=== PATIENT | male | born 1985 | race African-American/Black ===

== ENCOUNTER 2021-05-28 12:14 | Inpatient (IN) | payer OTHER ==
[~2021-05-28] VITALS: Ht 188 cm; Wt 98.0 kg
[2021-05-28] MEDS ORDERED: SODIUM CHLORIDE 0.9% 1000ML BAG (SEPSIS BOLUS) IV ONE (13:45)
[2021-05-28] MEDS ORDERED: PIPERACILLIN/TAZ 3.375G PREMIX 50 ML IV ONE (14:30)
[2021-05-28] MEDS ORDERED: VANCOMYCIN 1 G PREMIX 200 ML IV ONE (14:30)
[2021-05-28] MEDS ORDERED: CLINDAMYCIN 600 MG in DEXTROSE 5% WATER 50 ML IV ONE (14:30)
[2021-05-28] MEDS ORDERED: CLINDAMYCIN 600MG PREMIX 50 ML IV NR (14:45)
[2021-05-28 15:11] LABS: BASOPHILS % 0.3 % (0.0-2.0); EOSINOPHILS % 1.1 % (0.0-5.0); HEMATOCRIT. 42.6 % (42.0-52.0); HEMOGLOBIN. 14.9 g/dL (14.0-18.0); LYMPHOCYTES % 12.3 % (20.0-50.0); MEAN CORPUSCULAR HEMOGLOBIN 33.5 pg (28.0-32.0); MEAN CORPUSCULAR VOLUME 95.5 fL (80.0-94.0); MEAN PLATELET VOLUME 7.7 fl (7.4-10.4); MONOCYTES % 10.8 % (2.0-8.0); NEUTROPHILS % 75.5 % (40.0-76.0); PLATELET 266 x1000/uL (130-400); RED BLOOD CELL COUNT 4.46 mill/uL (4.7-6.1); RED CELL DISTRIBUTION WIDTH 13.4 % (11.6-14.6)
[2021-05-28] MEDS ORDERED: KETOROLAC 15MG/ML VIAL IV ONE (15:15)
[2021-05-28 15:23] LABS: CHLORIDE 109 mEq/L (98-107)
[2021-05-28 15:54] LABS: CLARITY URINE CLEAR (CLEAR); COLOR URINE YELLOW (YELLOW); KETONES URINE 1+ (NEGATIVE); LEUKOCYTE ESTERASE URINE NEGATIVE (NEGATIVE); NITRITE URINE NEGATIVE (NEGATIVE); OCCULT BLOOD URINE NEGATIVE (NEGATIVE); PH URINE 6.5 (4.5-8.0); PROTEIN URINE TRACE (NEGATIVE); SPECIFIC GRAVITY URINE 1.026 (1.005-1.030); UROBILINOGEN URINE 0.2 E.U./dL (0.2-1.0)
[2021-05-28] MEDS ORDERED: KCL 10MEQ/50ML PREMIX 50 ML IV ONE (16:15)
[2021-05-28 20:30] VITALS: BP 131/93
[2021-05-28] MEDS ORDERED: DIPHENHYDRAMINE 50MG/ML VIAL IV ONE (20:30)
[2021-05-28] MEDS ORDERED: IOHEXOL-300 100 ML BOTTLE ONE (20:39)
[2021-05-28 21:27] VITALS: BP 131/93
[2021-05-28] MEDS ORDERED: ACETAMINOPHEN 325MG TABLET PO PRN (22:00)
[2021-05-28] MEDS ORDERED: ONDANSETRON HCL 4MG/2ML INJ IV PRN (22:00)
[2021-05-28] MEDS: SODIUM CHLORIDE 0.9% 1,000 ML IV SCH (22:15)
[2021-05-28] MEDS ORDERED: VANCOMYCIN 1 G PREMIX 200 ML IV SCH (22:15)
[2021-05-28] MEDS: KETOROLAC 30MG/ML VIAL IV PRN (22:20)
[2021-05-29] MEDS: PIPERACILLIN/TAZOBACTAM 3.375 G in DEXTROSE 5% WATER 50 ML IV SCH ×5 (00:27→23:10)
[2021-05-29] MEDS: VANCOMYCIN 1250MG in DEXTROSE 5% WATER 250ML IV SCH ×3 (00:28→23:59)
[2021-05-29 02:59] VITALS: BP 121/83
[2021-05-29 05:43] VITALS: BP 120/77
[2021-05-29] MEDS: KETOROLAC 30MG/ML VIAL IV PRN ×3 (06:04→23:58)
[2021-05-29 07:58] LABS: BASOPHILS % 0.3 % (0.0-2.0); EOSINOPHILS % 1.8 % (0.0-5.0); HEMATOCRIT. 40.9 % (42.0-52.0); HEMOGLOBIN. 13.9 g/dL (14.0-18.0); LYMPHOCYTES % 14.4 % (20.0-50.0); MEAN CORPUSCULAR HEMOGLOBIN 32.9 pg (28.0-32.0); MEAN CORPUSCULAR VOLUME 96.9 fL (80.0-94.0); MEAN PLATELET VOLUME 7.8 fl (7.4-10.4); MONOCYTES % 10.5 % (2.0-8.0); PLATELET 241 x1000/uL (130-400); RED BLOOD CELL COUNT 4.22 mill/uL (4.7-6.1); RED CELL DISTRIBUTION WIDTH 13.5 % (11.6-14.6)
[2021-05-29 08:00] VITALS: BP 132/82
[2021-05-29 08:01] LABS: CHLORIDE 114 mEq/L (98-107)
[2021-05-29 08:05] LABS: PHOSPHORUS 2.5 mg/dL (2.5-4.9)
[2021-05-29] MEDS: SODIUM CHLORIDE 0.9% 1,000 ML IV SCH ×2 (08:52→17:21)
[2021-05-29 12:00] VITALS: BP 136/93
[2021-05-29 16:00] VITALS: BP 131/84
[2021-05-29 20:00] VITALS: BP 125/80
[2021-05-30] VITALS: BP 124/65
[2021-05-30 04:00] VITALS: BP 122/70
[2021-05-30] MEDS: SODIUM CHLORIDE 0.9% 1,000 ML IV SCH ×2 (04:53→14:15)
[2021-05-30] MEDS: PIPERACILLIN/TAZOBACTAM 3.375 G in DEXTROSE 5% WATER 50 ML IV SCH ×2 (05:06→11:18)
[2021-05-30] MEDS: KETOROLAC 30MG/ML VIAL IV PRN (05:50)
[2021-05-30 06:50] LABS: CHLORIDE 111 mEq/L (98-107)
[2021-05-30 08:00] VITALS: BP 125/77
[2021-05-30 12:00] VITALS: BP 133/79
[2021-05-30] MEDS: VANCOMYCIN 1250MG in DEXTROSE 5% WATER 250ML IV SCH (12:10)
[2021-05-30 14:52] VITALS: BP 137/93
[2021-05-30 15:17] VITALS: BP 137/93
== END 2021-05-30 16:10 | disposition home or self-care (01) | DRG 603 ==
LOC: ER 12:14 → 6EST 18:41 → ENRESERV 19:48 → SUPCPDRO 20:47
PROVIDERS: ADMIT Internal Medicine; ATTEND Internal Medicine
DX: L03.311 Cellulitis of abdominal wall (principal); L30.9 Dermatitis, unspecified; F17.200 Nicotine dependence, unspecified, uncomplicated; Z90.49 Acquired absence of other specified parts of digestive tract; Z88.6 Allergy status to analgesic agent; Z86.14 Personal history of Methicillin resistant Staphylococcus aureus infection
CPT/HCPCS: 36415; 71045; 74177; 80048; 80053; 80202; 81003; 83605; 83735; 84100; 84145; 85025; 93005; 99285; J1885; J2405; J2543; J3370; J3480; J3490; J7030; J7060; Q9967